=== PATIENT | male | born 1930 | race Caucasian/White ===

== ENCOUNTER 2017-12-03 14:02 | Observation (INO) | payer MEDICARE, MEDICAID ==
[~2017-12-03] VITALS: Ht 172.7 cm; Wt 74.0 kg
[~2017-12-03 14:02] MED LIST: CALA120T PO; ENOX40P SQ; NITR0.1D TD; ZOFR4TAB3 SL
[2017-12-03 14:05] VITALS: BP 157/80; PULSE 77; RESP 16; TEMP 97.6; O2SAT 97
[2017-12-03 14:20] VITALS: BP 162/78; PULSE 78; RESP 21; O2SAT 97
[2017-12-03] MEDS ORDERED: VERA120T3 PO (14:25)
[2017-12-03] MEDS ORDERED: SODIUM CHLORIDE 0.9% FLUSH 10 ML FLUSH IVF PRN (14:30)
--- NOTE | 2017-12-03 14:49 | PD ---
HPI . Weakness Chief Complaint: Neuro Symptoms/ Deficits Time Seen by Provider: 14:23 Travel History International Travel<30 days: No Contact w/Intl Traveler<30days: No Traveled to known affect area: No History of Present Illness HPI History is obtained from the patient and from several family members. 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 He was assisted to the truck by his son so that he could sit in the air conditioning. The weakness improved and he went back to work. However, the symptoms quickly returned. EMS was called and he was evaluated at the scene. They did not find any abnormality. He was then taken home and took a nap for about an hour. The family then noted slurred speech and left facial droop. This started about 45 minutes prior to presentation. He was brought here by private vehicle from [facility] for further evaluation. The patient denies headache or blurred vision. He denies chest pain or shortness of breath. The patient believes that his symptoms are secondary to working out in the heat all day. PFSH Past Medical History Hx Anticoagulant Therapy: No Atrial Fibrillation: Yes Cardiac Catheterization: Yes Diminished Hearing: No Inguinal Hernia: Yes Tetanus Vaccination: < 5 Years Past Surgical History Abdominal Surgery: Yes (R INGUINAL HERNIA) Tonsillectomy: Yes Social History Alcohol Use: No Tobacco Use: No Substance Use: No Allergies-Medications (Allergen,Severity, Reaction): Coded Allergies: acetaminophen (Unverified Allergy, Intermediate, 01/27/17) butorphanol (Unverified Allergy, Intermediate, 01/27/17) codeine (Unverified Allergy, Intermediate, 01/27/17) hydromorphone (Unverified Allergy, Intermediate, 01/27/17) ketorolac (Unverified Allergy, Intermediate, 01/27/17) lidocaine (Unverified Allergy, Intermediate, 01/27/17) morphine (Unverified Allergy, Intermediate, 01/27/17) naproxen (Unverified Allergy, Intermediate, 01/27/17) oxycodone (Unverified Allergy, Intermediate, 01/27/17) pravastatin (Unverified Allergy, Intermediate, 01/27/17) tramadol (Unverified Adverse Reaction, Unknown, Nausea/Vomiting, 01/27/17) Uncoded Allergies: STATINS (Allergy, Intermediate, 06/13/10) Reported Meds & Prescriptions Reported Meds & Active Scripts Active Reported Verapamil (Verapamil HCl) 120 Mg Tab 60 Mg PO TID Review of Systems Except as stated in HPI: all other systems reviewed are Neg Physical Exam Narrative GENERAL: This is an 87-year-old man who looks well. SKIN: warm/dry. HEAD: Normocephalic. Atraumatic. EYES: Pupils equal and round. Extraocular movements are intact. ENT: Mucous membranes pink and moist. NECK: Supple. Full range of motion without pain.. CARDIOVASCULAR: Atrial fibrillation with a controlled ventricular rate. RESPIRATORY: No accessory muscle use. Clear to auscultation. Breath sounds equal bilaterally. GASTROINTESTINAL: Abdomen soft. Nontender. Bowel sounds present. Nondistended. MUSCULOSKELETAL: No obvious deformities. Normal muscle tone. NEUROLOGICAL: Awake and alert. Normal speech. 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 Olzzor-tssm-asmzxm exam is intact. Negative pronator drift. Negative leg drift. Toes are downgoing bilaterally. PSYCHIATRIC: Appropriate mood and affect; insight and judgment normal. Data Data Last Documented VS Vital Signs Date Time Temp Pulse Resp B/P (MAP) Pulse Ox O2 Delivery O2 Flow Rate FiO2 12/03/17 14:20 78 21 162/78 (106) 97 Room Air 12/03/17 14:05 97.6 Orders Orders Electrocardiogram (12/03/17 14:23) Complete Blood Count With Diff (12/03/17 14:23) Basic Metabolic Panel (Bmp) (12/03/17 14:23) Troponin I (12/03/17 14:23) Ct Brain W/O Iv Contrast(Rout) (12/03/17 14:23) Ecg Monitoring (12/03/17 14:23) Iv Access Insert/Monitor (12/03/17 14:23) Oximetry (12/03/17 14:23) Sodium Chloride 0.9% Flush (Ns Flush) (12/03/17 14:30) Aspirin Chew (Aspirin Chew) (12/03/17 16:00) Labs Laboratory Tests Test 12/03/17 14:29 White Blood Count 5.4 TH/MM3 Red Blood Count 4.41 MIL/MM3 Hemoglobin 13.5 GM/DL Hematocrit 40.7 % Mean Corpuscular Volume 92.4 FL Mean Corpuscular Hemoglobin 30.6 PG Mean Corpuscular Hemoglobin Concent 33.2 % Red Cell Distribution Width 14.2 % Platelet Count 164 TH/MM3 Mean Platelet Volume 9.5 FL Neutrophils (%) (Auto) 76.7 % Lymphocytes (%) (Auto) 14.2 % Monocytes (%) (Auto) 7.3 % Eosinophils (%) (Auto) 1.2 % Basophils (%) (Auto) 0.6 % Neutrophils # (Auto) 4.2 TH/MM3 Lymphocytes # (Auto) 0.8 TH/MM3 Monocytes # (Auto) 0.4 TH/MM3 Eosinophils # (Auto) 0.1 TH/MM3 Basophils # (Auto) 0.0 TH/MM3 CBC Comment DIFF FINAL Differential Comment Blood Urea Nitrogen 18 MG/DL Creatinine 0.96 MG/DL Random Glucose 108 MG/DL Calcium Level 9.0 MG/DL Sodium Level 140 MEQ/L Potassium Level 4.0 MEQ/L Chloride Level 105 MEQ/L Carbon Dioxide Level 24.8 MEQ/L Anion Gap 10 MEQ/L Estimat Glomerular Filtration Rate 74 ML/MIN Troponin I LESS THAN 0.02 NG/ML MDM Medical Decision Making Medical Screen Exam Complete: Yes Emergency Medical Condition: Yes Interpretation(s) EKG shows atrial fibrillation with a ventricular rate of 62. No acute ischemic changes Differential Diagnosis Differential diagnosis of weakness includes but is not limited to infection, CVA , electrolyte disturbance, renal failure, hypoglycemia Narrative Course This patient presents with weakness. The son believes that the weakness was global. The states that he had some left-sided facial droop and slurred speech. All of this has resolved. Last Impressions Head CT 12/03/17 1423 Signed Impressions: CONCLUSION: 1. Negative CT Head non contrast. CBC & BMP Diagram 12/03/17 14:29 Calcium Level 9.0 trop < 0.02 The patient and his family are agreeable to an admission for further evaluation of TIA. Physician Communication Physician Communication Dr. Marr Diagnosis Primary Impression: TIA (transient ischemic attack) Qualified Codes: G45.1 - Carotid artery syndrome (hemispheric) Admitting Information Admitting Physician Requests: Observation Condition: Stable Leonor Carreno MD Dec 03, 2017 14:49
[2017-12-03 14:55] LABS: AUTOMATED NEUTROPHIL # 4.2 TH/MM3 (1.8-7.7); BASOPHIL % 0.6 % (0.0-2.0); EOSINOPHIL # 0.1 TH/MM3 (0-0.4); EOSINOPHIL % 1.2 % (0.0-4.0); HEMATOCRIT 40.7 % (39.0-51.0); HEMOGLOBIN 13.5 GM/DL (13.0-17.0); LYMPH % 14.2 % (9.0-44.0); LYMPHOCYTE # 0.8 TH/MM3 (1.0-4.8); MEAN CELL VOLUME 92.4 FL (80.0-100.0); MEAN CORPUSCULAR HEMOGLOBIN 30.6 PG (27.0-34.0); MEAN CORPUSCULAR HGB CONC 33.2 % (32.0-36.0); MEAN PLATELET VOLUME 9.5 FL (7.0-11.0); MONO % 7.3 % (0.0-8.0); MONOCYTE # 0.4 TH/MM3 (0-0.9); NEUT % 76.7 % (16.0-70.0); PLATELET COUNT 164 TH/MM3 (150-450); RED BLOOD COUNT 4.41 MIL/MM3 (4.50-5.90); RED CELL DISTRIBUTION WIDTH 14.2 % (11.6-17.2); WHITE BLOOD COUNT 5.4 TH/MM3 (4.0-11.0)
--- NOTE | 2017-12-03 15:04 | RADRPT ---
EXAM DATE: 12/03/2017 2:59 PM EDT AGE/SEX: 87 years / Male INDICATIONS: Slurred speach, right leg weakness. CLINICAL DATA: This is the patient's initial encounter. Patient reports that signs and symptoms have been present for 1 day and indicates a pain score of 0/10. MEDICAL/SURGICAL HISTORY: Cardiovascular disease. Tonsillectomy. RADIATION DOSE: 36.64 CTDI (mGy) COMPARISON: No prior exams available for comparison. TECHNIQUE: CT of the head without contrast. Using automated exposure control and adjustment of the mA and/or kV according to patient size, radiation dose was kept as low as reasonably achievable to ob tain optimal diagnostic quality images. DICOM format image data is available electronically for revi ew and comparison. FINDINGS: Cerebrum: The ventricles are normal for age. No evidence of midline shift, mass lesion, hemorrhage or acute infarction. No extraaxial fluid collections are seen. Posterior Fossa: The cerebellum and brainstem are intact. The 4th ventricle is midline. The cerebe llopontine angle is unremarkable. Extracranial: The visualized portion of the orbits is intact. Skull: The calvaria is intact. No evidence of skull fracture. CONCLUSION: 1. Negative CT Head non contrast. Electronically signed by: Rodrigo Mirza MD 12/03/2017 3:02 PM EDT
[2017-12-03 15:25] LABS: BICARBONATE 24.8 MEQ/L (21.0-32.0); BLOOD UREA NITROGEN 18 MG/DL (7-18); CHLORIDE 105 MEQ/L (98-107); CREATININE 0.96 MG/DL (0.60-1.30); GLOMERULAR FILTRATION RATE 74 ML/MIN (>89); GLUCOSE,RANDOM 108 MG/DL (74-106); SODIUM (NA) 140 MEQ/L (136-145)
[2017-12-03 15:30] LABS: TROPONIN I LESS THAN 0.02 NG/ML (0.02-0.05)
--- NOTE | 2017-12-03 15:54 | HHI.HP ---
[facility] Service Family Medicine Primary Care Physician Vladimir Lackey D.O. Admission Diagnosis TIA Diagnoses: International Travel<30 Days: No Contact w/Intl Traveler<30days: No Known Affected Area: No History of Present Illness 87-year-old male with a history of A. fib, currently not on anticoagulation, presents for TIA/stroke workup. Patient is here with his family. His son states that around 1130am this morning, patient was "holding a horseshoe and suddenly dropped it, stood there, and appeared confused." Son states that patient was assisted back to his truck for air conditioning. Son states that he appeared to walk very slowing. Son noticed that he had left-sided facial droop and slurred speech. Family states that his symptoms last for 20 minutes any progressively improved. Patient did not have any loss of consciousness. Patient was alert and oriented to name place and time during the whole episode. Patient states that he was just hot and dehydrated and needed some AC. He denies that he had any neuro symptoms. Patient has no history of seizures, stroke, CHF, and MT. He denies chest pain, shortness of breath, palpations, fevers, night sweats, tongue biting, shaking, loss of bowel/bladder control. Family called the ambulance after his neuro symptoms. He reports that the EMT did not think he had a stroke. Family however was still concerned and brought the patient against his will to the ED. Patient states that he was diagnosed with A. fib years ago in 2007. States that they never found a cause for his A. fib. Currently on rate control with verapamil 60 mg p.o. 3 times daily. Patient states that he was on Lovenox subcu in the past, but has not taken it in several years. Patient refuses to take anticoagulation. 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 He does receive chelation therapy once a week. He has had a total of 3 chelation therapies. 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 Review of Systems Constitutional: DENIES: Fever, Weight loss, Change in appetite Eyes: DENIES: Vision loss Respiratory: DENIES: Cough, Shortness of breath Cardiovascular: COMPLAINS OF: Lower Extremity Edema, DENIES: Chest pain, Palpitations Gastrointestinal: DENIES: Abdominal pain, Bloody stools, Diarrhea, Nausea, Vomiting, Difficulty Swallowing Genitourinary: DENIES: Dysuria Musculoskeletal: DENIES: Back pain Integumentary: DENIES: Rash Neurologic: DENIES: Abnormal gait, Headache, Localized weakness, Paresthesias, Tremor Psychiatric: DENIES: Confusion, Depression Past Family Social History Past Medical History AFib BPH Past Surgical History 2009, emergency hernia surgery Reported Medications Reported Meds & Active Scripts Active Reported Verapamil (Verapamil HCl) 120 Mg Tab 60 Mg PO TID Allergies: Coded Allergies: acetaminophen (Unverified Allergy, Intermediate, 01/27/17) butorphanol (Unverified Allergy, Intermediate, 01/27/17) codeine (Unverified Allergy, Intermediate, 01/27/17) hydromorphone (Unverified Allergy, Intermediate, 01/27/17) ketorolac (Unverified Allergy, Intermediate, 01/27/17) lidocaine (Unverified Allergy, Intermediate, 01/27/17) morphine (Unverified Allergy, Intermediate, 01/27/17) naproxen (Unverified Allergy, Intermediate, 01/27/17) oxycodone (Unverified Allergy, Intermediate, 01/27/17) pravastatin (Unverified Allergy, Intermediate, 01/27/17) tramadol (Unverified Adverse Reaction, Unknown, Nausea/Vomiting, 01/27/17) Uncoded Allergies: STATINS (Allergy, Intermediate, 06/13/10) Family History Mom- pass away at 101 Dad-shot healthy children no cardiac history Social History 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 Normocephalic. No temporal or scalp tenderness. EYES: Pupils equal round and reactive. Extraocular motions intact. No scleral icterus. No injection or drainage. ENT: Nose without bleeding, purulent drainage or septal hematoma. Throat without erythema, tonsillar hypertrophy or exudate. Uvula midline. Airway patent. NECK: Trachea midline. No JVD or lymphadenopathy. Supple, nontender, no meningeal signs. CARDIOVASCULAR: Irregular rate and rhythm RESPIRATORY: Clear to auscultation. Breath sounds equal bilaterally. No wheezes , rales, or rhonchi. GASTROINTESTINAL: Abdomen soft, non-tender, nondistended. No hepato-splenomegaly , or palpable masses. No guarding. MUSCULOSKELETAL: Extremities without clubbing, cyanosis, or edema. No joint tenderness, effusion, or edema noted. No calf tenderness. Negative Homans sign bilaterally. NEUROLOGICAL: Awake and alert. Oriented 3. Cranial nerves II through XII intact. Motor and sensory grossly within normal limits. Five out of 5 muscle strength in all muscle groups. Normal speech. Laboratory Laboratory Tests Test 12/03/17 14:29 White Blood Count 5.4 Red Blood Count 4.41 Hemoglobin 13.5 Hematocrit 40.7 Mean Corpuscular Volume 92.4 Mean Corpuscular Hemoglobin 30.6 Mean Corpuscular Hemoglobin Concent 33.2 Red Cell Distribution Width 14.2 Platelet Count 164 Mean Platelet Volume 9.5 Neutrophils (%) (Auto) 76.7 Lymphocytes (%) (Auto) 14.2 Monocytes (%) (Auto) 7.3 Eosinophils (%) (Auto) 1.2 Basophils (%) (Auto) 0.6 Neutrophils # (Auto) 4.2 Lymphocytes # (Auto) 0.8 Monocytes # (Auto) 0.4 Eosinophils # (Auto) 0.1 Basophils # (Auto) 0.0 CBC Comment DIFF FINAL Differential Comment Blood Urea Nitrogen 18 Creatinine 0.96 Random Glucose 108 Calcium Level 9.0 Sodium Level 140 Potassium Level 4.0 Chloride Level 105 Carbon Dioxide Level 24.8 Anion Gap 10 Estimat Glomerular Filtration Rate 74 Troponin I LESS THAN 0.02 Result Diagram: 12/03/17 14212/03/17 142 Caprini VTE Risk Assessment Caprini VTE Risk Assessment: Mod/High Risk (score >= 2) Caprini Risk Assessment Model Point Value = 1 Point Value = 2 Point Value = 3 Point Value = 5 Age 41-60 Minor surgery BMI > 25 kg/m2 Swollen legs Varicose veins or History of unexplained or recurrent spontaneous Oral contraceptives or hormone replacement Sepsis (< 1 month) Serious lung disease, including pneumonia (< 1 month) Abnormal pulmonary function Acute myocardial infarction Congestive heart failure (< 1 month) History of inflammatory bowel disease Medical patient at bed rest Age 61-74 Arthroscopic surgery Major open surgery (> 45 min) Laparoscopic surgery (> 45 min) Malignancy Confined to bed (> 72 hours) Immobilizing plaster cast Central venous access Age >= 75 History of VTE Family history of VTE Factor V Leiden Prothrombin [id number] Lupus anticoagulant Anticardiolipin antibodies Elevated serum homocysteine Heparin-induced thrombocytopenia Other congenital or acquired thrombophilia Stroke (< 1 month) Elective arthroplasty Hip, pelvis, or leg fracture Acute spinal cord injury (< 1 month) Prophylaxis Regimen Total Risk Factor Score Risk Level Prophylaxis Regimen 0-1 Low Early ambulation 2 Moderate Order ONE of the following: *Sequential Compression Device (SCD) *Heparin 5000 units SQ BID 3-4 Higher Order ONE of the following medications: *Heparin 5000 units SQ TID *Enoxaparin/Lovenox 40 mg SQ daily (WT < 150 kg, CrCl > 30 mL/min) *Enoxaparin/Lovenox 30 mg SQ daily (WT < 150 kg, CrCl > 10-29 mL/min) *Enoxaparin/Lovenox 30 mg SQ BID (WT < 150 kg, CrCl > 30 mL/min) AND/OR *Sequential Compression Device (SCD) 5 or more Highest Order ONE of the following medications: *Heparin 5000 units SQ TID (Preferred with Epidurals) *Enoxaparin/Lovenox 40 mg SQ daily (WT < 150 kg, CrCl > 30 mL/min) *Enoxaparin/Lovenox 30 mg SQ daily (WT < 150 kg, CrCl > 10-29 mL/min) *Enoxaparin/Lovenox 30 mg SQ BID (WT < 150 kg, CrCl > 30 mL/min) AND *Sequential Compression Device (SCD) Assessment and Plan Assessment and Plan 87-year-old male with a history of A. fib, currently not on anticoagulation, admitted for TIA/stroke workup. Code Status Full code Problem List: (1) TIA (transient ischemic attack) ICD Codes: G45.9 - Transient cerebral ischemic attack, unspecified Status: Acute Plan: Family states patient had neuro symptoms around 11:30 AM, with resolution of symptoms in 20 minutes. Patient states that he was just dehydrated. He is adamant about staying and refuses to take any medicines. After much discussion with the patient, patient agreed to stay. EKG demonstrates A. fib, heart rate in the 70s, troponins less than 0.02 Continue to trend EKG and troponin every [address] negative for hemorrhagic stroke Patient refused aspirin. A1c, lipid panel, MRI brain, MRA brain, and US carotids ordered Head 30 for 12 hours N.p.o., will advance diet to heart healthy once patient passes swallow study Allow permissive hypertension to 220/120 (2) A-fib ICD Codes: I48.91 - Unspecified atrial fibrillation Plan: Hold home verapamil, allow for permissive hypertension He is currently not on anticoagulation. Patient states that he was on Lovenox SC years ago. Patient refuses to take any new medications. CHADVASC Score of 2 points, HASBLED 1 point (3) BPH (benign prostatic hyperplasia) ICD Codes: N40.0 - Benign prostatic hyperplasia without lower urinary tract symptoms Plan: Patient states that he has a large prostate. He is not currently on any medication for his BPH. (4) Nutrition, metabolism, and development symptoms ICD Codes: R63.8 - Other symptoms and signs concerning food and fluid intake Plan: Diet: NPO the patient passes bedside swallow Fluids.MIVF Vitals every 4, cardiac telemetry, monitor I & Os DVT ppx: SCDs Problem Qualifiers (1) TIA (transient ischemic attack): Qualified Codes: G45.1 - Carotid artery syndrome (hemispheric) Kaylynn Marr MD R1 Dec 03, 2017 15:54
[2017-12-03] MEDS ORDERED: ASPIRIN 81 MG CHEW TAB CHEW ONE (16:00)
[2017-12-03] MEDS ORDERED: GLUCAGON 1 MG/ML VIAL OTHER PRN (16:30)
[2017-12-03] MEDS ORDERED: SODIUM CHLORIDE 0.9% FLUSH 10 ML FLUSH IV FLUSH PRN (16:30)
[2017-12-03] MEDS ORDERED: DEXTROSE 50% IN WATER 50 ML VIAL(D50) IV PUSH PRN (16:30)
[2017-12-03] MEDS ORDERED: PILL SPLITTER OTHER PRN (16:45)
[2017-12-03] MEDS ORDERED: INSULIN ASPART SUPPLEMENTAL SCALE SQ SCH (17:00)
--- NOTE | 2017-12-03 17:52 | PD.AMA ---
Against Medical Advice Note Discharge Disposition: Against Medical Advice AMA Statement Patient Sung Munson has decided to leave the hospital against medical advice. This patient has the capacity to refuse care and understands the risks of leaving, including permanent disability and/or , and has had an opportunity to ask questions about his condition. The patient has been informed that he may return for care at any time, and follow up has been arranged/advised. Patient will not be accepted back to the Family Medicine Service. Kaylynn Marr MD R1 Dec 03, 2017 17:52
[2017-12-03] MEDS ORDERED: VERAPAMIL HCL 120 MG TAB PO SCH (18:00)
[2017-12-03] MEDS ORDERED: SODIUM CHLORIDE 0.9% FLUSH 10 ML FLUSH IV FLUSH SCH (21:00)
[2017-12-03 22:05] LABS: HEMOGLOBIN A1C 5.4 % (4.3-6.0)
--- NOTE | 2017-12-04 09:17 | EKG ---
Date Performed: 12/03/2017 Time Performed: 14:34:23 PTAGE: 87 years EKG: ATRIAL FIBRILLATION INCOMPLETE RIGHT BUNDLE BRANCH BLOCK MINIMAL ST DEPRESSION ABNORMAL RHY THM ECG Since the PREVIOUS TRACING , no significant change noted PREVIOUS TRACIN06/13/2010 11.59 DOCTOR: Dony Almonte Interpretating Date/Time 12/04/2017 09:13:57
[2017-12-04] MEDS ORDERED: ASA325 PO (18:07)
== END 2017-12-03 17:51 | disposition left against medical advice (07) ==
LOC: NEPE 14:02 → NEDA 15:50
PROVIDERS: ADMIT Family Medicine; ATTEND Family Medicine
DX: R29.818 Other symptoms and signs involving the nervous system (principal); R53.1 Weakness; R47.81 Slurred speech; R29.810 Facial weakness; I48.91 Unspecified atrial fibrillation; N40.0 Benign prostatic hyperplasia without lower urinary tract symptoms; R79.89 Other specified abnormal findings of blood chemistry
CPT/HCPCS: 70450; 80048; 83036; 84484; 85025; 93005; 99285; G0378

== ENCOUNTER 2017-12-03 18:02 | Observation (INO) | payer MEDICARE, MEDICAID ==
[~2017-12-03] VITALS: Ht 172.7 cm; Wt 74.0 kg
[~2017-12-03 18:02] MED LIST changes: +VERA120T3 PO
[2017-12-03 18:11] VITALS: BP 137/73; PULSE 73; RESP 16; TEMP 97.1; O2SAT 97
[2017-12-03 20:00] VITALS: O2SAT 96
--- NOTE | 2017-12-03 20:11 | PD ---
HPI Chief Complaint: Neuro Symptoms/ Deficits Time Seen by Provider: 20:32 Travel History International Travel<30 days: No Contact w/Intl Traveler<30days: No Traveled to known affect area: No History of Present Illness HPI Patient was seen earlier and admitted by family medicine service, however the patient decided to leave AGAINST MEDICAL ADVICE. Now the patient returns at 20 00 with return of slurred speech difficulty speaking and unable to communicate with his family for approximately 30 minutes or so. This prompted the patient to return and this time the patient agrees to stay for further evaluation. Patient denied having any localized weakness at this time and he slurred speech has improved and is almost back to baseline. no alleviating/aggravating factors. no assoc fever/rash/sob/cp/carmen/. States multiple allergies Family history significant for atrial fibrillation, inguinal hernia, tonsillectomy PFSH Past Medical History Hx Anticoagulant Therapy: No Atrial Fibrillation: Yes Cardiac Catheterization: Yes Diminished Hearing: No Inguinal Hernia: Yes Past Surgical History Abdominal Surgery: Yes (R INGUINAL HERNIA) Tonsillectomy: Yes Social History Alcohol Use: No Tobacco Use: No Substance Use: No Allergies-Medications (Allergen,Severity, Reaction): Coded Allergies: acetaminophen (Unverified Allergy, Intermediate, 01/27/17) butorphanol (Unverified Allergy, Intermediate, 01/27/17) codeine (Unverified Allergy, Intermediate, 01/27/17) hydromorphone (Unverified Allergy, Intermediate, 01/27/17) ketorolac (Unverified Allergy, Intermediate, 01/27/17) lidocaine (Unverified Allergy, Intermediate, 01/27/17) morphine (Unverified Allergy, Intermediate, 01/27/17) naproxen (Unverified Allergy, Intermediate, 01/27/17) oxycodone (Unverified Allergy, Intermediate, 01/27/17) pravastatin (Unverified Allergy, Intermediate, 01/27/17) tramadol (Unverified Adverse Reaction, Unknown, Nausea/Vomiting, 01/27/17) Uncoded Allergies: STATINS (Allergy, Intermediate, 06/13/10) Reported Meds & Prescriptions Reported Meds & Active Scripts Active Reported Verapamil (Verapamil HCl) 120 Mg Tab 60 Mg PO TID Review of Systems General / Constitutional: No: Fever Eyes: No: Visual changes HENT: No: Headaches Cardiovascular: No: Chest Pain or Discomfort Respiratory: No: Shortness of Breath Gastrointestinal: No: Abdominal Pain Genitourinary: No: Dysuria Musculoskeletal: No: Pain Skin: No Rash Neurologic: Positive: Slurred Speech Psychiatric: No: Depression Endocrine: No: Polydipsia Hematologic/Lymphatic: No: Easy Bruising Physical Exam Narrative GENERAL: SKIN: Warm and dry. HEAD: Atraumatic. Normocephalic. EYES: Pupils equal and round. No scleral icterus. No injection or drainage. ENT: No nasal bleeding or discharge. Mucous membranes pink and moist. NECK: Trachea midline. No JVD. CARDIOVASCULAR: Regular rate and rhythm. RESPIRATORY: No accessory muscle use. Clear to auscultation. Breath sounds equal bilaterally. GASTROINTESTINAL: Abdomen soft, non-tender, nondistended. MUSCULOSKELETAL: Extremities without clubbing, cyanosis, or edema. No obvious deformities. NEUROLOGICAL: Awake and alert. No obvious cranial nerve deficits. Motor grossly within normal limits. Five out of 5 muscle strength in the arms and legs. Normal speech. PSYCHIATRIC: Appropriate mood and affect; insight and judgment normal. Data Data Last Documented VS Vital Signs Date Time Temp Pulse Resp B/P (MAP) Pulse Ox O2 Delivery O2 Flow Rate FiO2 12/03/17 20:35 97.5 62 14 149/76 (100) 96 Room Air Orders Orders Sepsis Workup Initiated (12/03/17 ) Complete Blood Count With Diff (12/03/17 20:00) Comprehensive Metabolic Panel (12/03/17 20:00) Lactic Acid Sepsis Protocol (12/03/17 20:00) Urinalysis - C+S If Indicated (12/03/17 20:00) Blood Culture (12/03/17 20:00) Blood Glucose (12/03/17 20:00) Ecg Monitoring (12/03/17 20:00) Iv Access Insert/Monitor (12/03/17 20:00) Oximetry (12/03/17 20:00) Ct Brain W/O Iv Contrast(Rout) (12/03/17 20:00) Admit Order (Ed Use Only) (12/03/17 20:45) Labs Laboratory Tests Test 12/03/17 20:25 White Blood Count 5.7 TH/MM3 Red Blood Count 4.34 MIL/MM3 Hemoglobin 13.3 GM/DL Hematocrit 40.0 % Mean Corpuscular Volume 92.1 FL Mean Corpuscular Hemoglobin 30.6 PG Mean Corpuscular Hemoglobin Concent 33.2 % Red Cell Distribution Width 14.4 % Platelet Count 171 TH/MM3 Mean Platelet Volume 9.5 FL Neutrophils (%) (Auto) 71.4 % Lymphocytes (%) (Auto) 18.1 % Monocytes (%) (Auto) 9.3 % Eosinophils (%) (Auto) 0.7 % Basophils (%) (Auto) 0.5 % Neutrophils # (Auto) 4.1 TH/MM3 Lymphocytes # (Auto) 1.0 TH/MM3 Monocytes # (Auto) 0.5 TH/MM3 Eosinophils # (Auto) 0.0 TH/MM3 Basophils # (Auto) 0.0 TH/MM3 CBC Comment DIFF FINAL Differential Comment Blood Urea Nitrogen 16 MG/DL Creatinine 0.93 MG/DL Random Glucose 104 MG/DL Total Protein 7.4 GM/DL Albumin 4.0 GM/DL Calcium Level 9.1 MG/DL Alkaline Phosphatase 92 U/L Aspartate Amino Transf (AST/SGOT) 21 U/L Alanine Aminotransferase (ALT/SGPT) 23 U/L Total Bilirubin 0.7 MG/DL Sodium Level 140 MEQ/L Potassium Level 3.8 MEQ/L Chloride Level 105 MEQ/L Carbon Dioxide Level 24.3 MEQ/L Anion Gap 11 MEQ/L Estimat Glomerular Filtration Rate 77 ML/MIN Lactic Acid Level 1.2 mmol/L [facility] Medical Decision Making Medical Screen Exam Complete: Yes Emergency Medical Condition: Yes Medical Record Reviewed: Yes Differential Diagnosis TIA versus CVA versus electrolyte abnormalities Narrative Course Patient was previously admitted by family medicine residents, and apparently left AMA. However now the patient returns for further care and agrees that he will stay for further evaluation. Family medicine called for readmission after CT head performed.... Repeat CT head does not show any evidence of intracranial hemorrhage Diagnosis Primary Impression: TIA (transient ischemic attack) Qualified Codes: G45.9 - Transient cerebral ischemic attack, unspecified Admitting Information Admitting Physician Requests: Observation Scripts Aspirin (Px Aspirin) 325 Mg Tab 325 MG PO DAILY, #30 TAB Prov: Roque Tran MD R2 12/04/17 Cecilio Omalley MD Dec 03, 2017 20:11
--- NOTE | 2017-12-03 20:29 | RADRPT ---
EXAM DATE: 12/03/2017 8:21 PM EDT AGE/SEX: 87 years / Male INDICATIONS: Slurred speech. Right leg weakness. CLINICAL DATA: This is the patient's initial encounter. Patient reports that signs and symptoms have been present for 1 day and indicates a pain score of 0/10. MEDICAL/SURGICAL HISTORY: Cardiovascular disease. None. RADIATION DOSE: 56.35 CTDI (mGy) COMPARISON: CT brain 12/03/2017 at 0255 hours . TECHNIQUE: CT of the head without contrast. Using automated exposure control and adjustment of the mA and/or kV according to patient size, radiation dose was kept as low as reasonably achievable to ob tain optimal diagnostic quality images. DICOM format image data is available electronically for revi ew and comparison. FINDINGS: Cerebrum: The ventricles are normal for age. No evidence of midline shift, mass lesion, hemorrhage or acute infarction. No extraaxial fluid collections are seen. Posterior Fossa: The cerebellum and brainstem are intact. The 4th ventricle is midline. The cerebe llopontine angle is unremarkable. Extracranial: The visualized portion of the orbits is intact. Skull: The calvaria is intact. No evidence of skull fracture. CONCLUSION: 1. Negative CT Head non contrast. Electronically signed by: Humphrey Aponte MD 12/03/2017 8:27 PM EDT
[2017-12-03 20:35] VITALS: BP 149/76; PULSE 62; RESP 14; TEMP 97.5; O2SAT 96
[2017-12-03 20:39] LABS: AUTOMATED NEUTROPHIL # 4.1 TH/MM3 (1.8-7.7); BASOPHIL % 0.5 % (0.0-2.0); EOSINOPHIL % 0.7 % (0.0-4.0); HEMOGLOBIN 13.3 GM/DL (13.0-17.0); LYMPH % 18.1 % (9.0-44.0); MEAN CELL VOLUME 92.1 FL (80.0-100.0); MEAN CORPUSCULAR HEMOGLOBIN 30.6 PG (27.0-34.0); MEAN CORPUSCULAR HGB CONC 33.2 % (32.0-36.0); MEAN PLATELET VOLUME 9.5 FL (7.0-11.0); MONO % 9.3 % (0.0-8.0); MONOCYTE # 0.5 TH/MM3 (0-0.9); NEUT % 71.4 % (16.0-70.0); PLATELET COUNT 171 TH/MM3 (150-450); RED BLOOD COUNT 4.34 MIL/MM3 (4.50-5.90); RED CELL DISTRIBUTION WIDTH 14.4 % (11.6-17.2); WHITE BLOOD COUNT 5.7 TH/MM3 (4.0-11.0)
[2017-12-03 21:04] LABS: AST (GOT) 21 U/L (15-37); BICARBONATE 24.3 MEQ/L (21.0-32.0); BLOOD UREA NITROGEN 16 MG/DL (7-18); CALCIUM 9.1 MG/DL (8.5-10.1); CHLORIDE 105 MEQ/L (98-107); CREATININE 0.93 MG/DL (0.60-1.30); GLOMERULAR FILTRATION RATE 77 ML/MIN (>89); GLUCOSE,RANDOM 104 MG/DL (74-106); SODIUM (NA) 140 MEQ/L (136-145)
[2017-12-03 21:09] LABS: ALKALINE PHOSPHATASE 92 U/L (45-117); ALT (GPT) 23 U/L (12-78); TOTAL BILIRUBIN ADULT 0.7 MG/DL (0.2-1.0); TOTAL PROTEIN 7.4 GM/DL (6.4-8.2)
[2017-12-03 21:53] LABS: BILIRUBIN, URINE NEG (NEG); BLOOD, URINE NEG (NEG); GLUCOSE,URINE NEG (NEG); KETONE, URINE TRACE mg/dL (NEG); NITRITE,URINE NEG (NEG); URINE COLOR YELLOW (YELLW/STRAW); URINE LEUKOCYTE ESTERASE NEG (NEG)
--- NOTE | 2017-12-03 22:01 | HHI.HP ---
[facility] Service Family Medicine Primary Care Physician Vladimir Lackey D.O. Admission Diagnosis TIA Diagnoses: Chief Complaint: slurred speech International Travel<30 Days: No Contact w/Intl Traveler<30days: No Known Affected Area: No History of Present Illness 87-year-old male with history of atrial fibrillation presents with slurred speech. Of note, patient was previously admitted earlier this afternoon due to confusion, left-sided facial droop, and slurred speech. Patient was admitted and seen, however decided to leave against medical advice. On the way home, patient stated he experienced another episode of slurred speech, and his turned around and brought him back to the ER. He now states he wants to stay and will need to be worked up. At the time of the initial incident earlier this afternoon, he states he was hot and outside. States the symptoms started suddenly. Denies any history of seizures, stroke. He states he does have a history of cardiac disease, which they were planning on doing a quadruple bypass, but he declined. He underwent chelation therapy is 18 years ago, and stated that worked. Does not currently see a real estate economist. His PCP is Dr. Lackey. He does have a history of atrial fibrillation. He is not on anticoagulation, due to concerns [place]. He does not drink alcohol. Does not smoke. Denies any drug use. No headaches. Currently, he states he feels back to normal. Review of Systems Constitutional: DENIES: Fever, Weight gain, Weight loss, Chills, Dizziness Eyes: DENIES: Blurred vision, Vision loss Ears, nose, mouth, throat: DENIES: Hearing loss, Sinus Pain, Toothache Respiratory: DENIES: Apneas, Cough, Snoring, Wheezing, Hemoptysis Cardiovascular: DENIES: Chest pain, Palpitations, Syncope, Dyspnea on Exertion , PND, Lower Extremity Edema Gastrointestinal: DENIES: Abdominal pain, Black stools, Bloody stools, Constipation, Diarrhea, Nausea, Vomiting Genitourinary: DENIES: Urgency, Testicular Swelling Musculoskeletal: DENIES: Muscle aches, Back pain, Neck pain Integumentary: DENIES: Abnormal pigmentation, Rash Hematologic/lymphatic: DENIES: Bruising, Lymphadenopathy Neurologic: DENIES: Abnormal gait, Headache Psychiatric: DENIES: Anxiety, Confusion, Mood changes Past Family Social History Past Medical History Afib BPH Past Surgical History 2010-hernia surgery Reported Medications Reported Meds & Active Scripts Active Reported Verapamil (Verapamil HCl) 120 Mg Tab 60 Mg PO TID Allergies: Coded Allergies: acetaminophen (Unverified Allergy, Intermediate, 01/27/17) butorphanol (Unverified Allergy, Intermediate, 01/27/17) codeine (Unverified Allergy, Intermediate, 01/27/17) hydromorphone (Unverified Allergy, Intermediate, 01/27/17) ketorolac (Unverified Allergy, Intermediate, 01/27/17) lidocaine (Unverified Allergy, Intermediate, 01/27/17) morphine (Unverified Allergy, Intermediate, 01/27/17) naproxen (Unverified Allergy, Intermediate, 01/27/17) oxycodone (Unverified Allergy, Intermediate, 01/27/17) pravastatin (Unverified Allergy, Intermediate, 01/27/17) tramadol (Unverified Adverse Reaction, Unknown, Nausea/Vomiting, 01/27/17) Uncoded Allergies: STATINS (Allergy, Intermediate, 06/13/10) Family History Mother-passed at 101 Father-passed from being shot Healthy children Social History Lives with and kids Works as a [employer] Denies smoking, drinking, drug use Physical Exam Vital Signs Vital Signs Date Time Temp Pulse Resp B/P (MAP) Pulse Ox O2 Delivery O2 Flow Rate FiO2 12/03/17 20:35 97.5 62 14 149/76 (100) 96 Room Air 12/03/17 20:00 96 Room Air 12/03/17 18:11 97.1 73 16 137/73 (94) 97 Physical Exam GENERAL: This is a well-nourished, well-developed patient, in no apparent distress. SKIN: No rashes, ecchymoses or lesions. Cool and dry. HEAD: Atraumatic. Normocephalic. No temporal or scalp tenderness. EYES: Pupils equal round and reactive. Extraocular motions intact. No scleral icterus. No injection or drainage. ENT: Throat without erythema, tonsillar hypertrophy or exudate. Uvula midline. Airway patent. NECK: Trachea midline. No JVD or lymphadenopathy. Supple, nontender. CARDIOVASCULAR: Regular rate and rhythm without murmurs, gallops, or rubs. RESPIRATORY: Clear to auscultation. Breath sounds equal bilaterally. No wheezes , rales, or rhonchi. GASTROINTESTINAL: Abdomen soft, non-tender, nondistended. No hepato-splenomegaly , or palpable masses. No guarding. MUSCULOSKELETAL: Extremities without clubbing, cyanosis, or edema. No joint tenderness, effusion, or edema noted. No calf tenderness. NEUROLOGICAL: Alert, oriented x3 Speech- Fluent. No dysarthria or dysphasia. Good focus, attention, and comprehension. Cranial nerves- 2 through 12 intact. Face- No facial droop. No tongue deviation. Sensation intact bilaterally 5/5 strength bilaterally. Cerebellar movements wnl. Able to repeat phrases. Able to name simple objects. Short term memory intact. Laboratory Laboratory Tests Test 12/03/17 20:25 12/03/17 21:00 White Blood Count 5.7 Red Blood Count 4.34 Hemoglobin 13.3 Hematocrit 40.0 Mean Corpuscular Volume 92.1 Mean Corpuscular Hemoglobin 30.6 Mean Corpuscular Hemoglobin Concent 33.2 Red Cell Distribution Width 14.4 Platelet Count 171 Mean Platelet Volume 9.5 Neutrophils (%) (Auto) 71.4 Lymphocytes (%) (Auto) 18.1 Monocytes (%) (Auto) 9.3 Eosinophils (%) (Auto) 0.7 Basophils (%) (Auto) 0.5 Neutrophils # (Auto) 4.1 Lymphocytes # (Auto) 1.0 Monocytes # (Auto) 0.5 Eosinophils # (Auto) 0.0 Basophils # (Auto) 0.0 CBC Comment DIFF FINAL Differential Comment Blood Urea Nitrogen 16 Creatinine 0.93 Random Glucose 104 Total Protein 7.4 Albumin 4.0 Calcium Level 9.1 Alkaline Phosphatase 92 Aspartate Amino Transf (AST/SGOT) 21 Alanine Aminotransferase (ALT/SGPT) 23 Total Bilirubin 0.7 Sodium Level 140 Potassium Level 3.8 Chloride Level 105 Carbon Dioxide Level 24.3 Anion Gap 11 Estimat Glomerular Filtration Rate 77 Lactic Acid Level 1.2 Urine Color YELLOW Urine Turbidity CLEAR Urine pH 7.0 Urine Specific [place] 1.010 Urine Protein NEG Urine Glucose (UA) NEG Urine Ketones TRACE Urine Occult Blood NEG Urine Nitrite NEG Urine Bilirubin NEG Urine Urobilinogen LESS THAN 2 Urine Leukocyte Esterase NEG Urine RBC 1 Urine WBC 2 Microscopic Urinalysis Comment CATH-CULT NOT IND Date/Time Source Procedure Growth Status 12/03/17 20:25 Blood Peripheral Aerobic Blood Culture Pending Received 12/03/17 20:25 Blood Peripheral Anaerobic Blood Culture Pending Received Result Diagram: 12/03/17202412/03/172024 Imaging Last Impressions Head CT 12/03/171999 Signed Impressions: CONCLUSION: 1. Negative CT Head non contrast. Caprini VTE Risk Assessment Caprini VTE Risk Assessment: Mod/High Risk (score >= 2) Caprini Risk Assessment Model Point Value = 1 Point Value = 2 Point Value = 3 Point Value = 5 Age 41-60 Minor surgery BMI > 25 kg/m2 Swollen legs Varicose veins or History of unexplained or recurrent spontaneous Oral contraceptives or hormone replacement Sepsis (< 1 month) Serious lung disease, including pneumonia (< 1 month) Abnormal pulmonary function Acute myocardial infarction Congestive heart failure (< 1 month) History of inflammatory bowel disease Medical patient at bed rest Age 61-74 Arthroscopic surgery Major open surgery (> 45 min) Laparoscopic surgery (> 45 min) Malignancy Confined to bed (> 72 hours) Immobilizing plaster cast Central venous access Age >= 75 History of VTE Family history of VTE Factor V Leiden Prothrombin [id number] Lupus anticoagulant Anticardiolipin antibodies Elevated serum homocysteine Heparin-induced thrombocytopenia Other congenital or acquired thrombophilia Stroke (< 1 month) Elective arthroplasty Hip, pelvis, or leg fracture Acute spinal cord injury (< 1 month) Prophylaxis Regimen Total Risk Factor Score Risk Level Prophylaxis Regimen 0-1 Low Early ambulation 2 Moderate Order ONE of the following: *Sequential Compression Device (SCD) *Heparin 5000 units SQ BID 3-4 Higher Order ONE of the following medications: *Heparin 5000 units SQ TID *Enoxaparin/Lovenox 40 mg SQ daily (WT < 150 kg, CrCl > 30 mL/min) *Enoxaparin/Lovenox 30 mg SQ daily (WT < 150 kg, CrCl > 10-29 mL/min) *Enoxaparin/Lovenox 30 mg SQ BID (WT < 150 kg, CrCl > 30 mL/min) AND/OR *Sequential Compression Device (SCD) 5 or more Highest Order ONE of the following medications: *Heparin 5000 units SQ TID (Preferred with Epidurals) *Enoxaparin/Lovenox 40 mg SQ daily (WT < 150 kg, CrCl > 30 mL/min) *Enoxaparin/Lovenox 30 mg SQ daily (WT < 150 kg, CrCl > 10-29 mL/min) *Enoxaparin/Lovenox 30 mg SQ BID (WT < 150 kg, CrCl > 30 mL/min) AND *Sequential Compression Device (SCD) Assessment and Plan Assessment and Plan 87-year-old male with history of atrial fibrillation presents with TIA symptoms. Code Status Full Discussed Condition With Dr. Omalley Problem List: (1) TIA (transient ischemic attack) ICD Codes: G45.9 - Transient cerebral ischemic attack, unspecified Status: Acute Plan: Symptoms initially began around 1130 this morning. Symptoms quickly resolved. They then returned, but then again quickly resolved. Vascular risk factors include age, A-fib. Not on anticoagulation Physical exam on admission was within normal limits. CT was negative for bleeding. EKG shows A. fib. Troponins negative earlier today. ABCD2 score of 4: moderate risk for subsequent stroke -MRI brain stat to r/o ischemic stroke. -MRA brain and carotids ordered. -ACS rule out -2D ECHO -Given aspirin 325mg, continue daily -Neuro checks q4 hrs. Tele. -HOB flat for 12 hrs -Bedrest with fall precautions. -Consult neurology-appreciate recs -PT/OT/ST -If pt passes bedside swallow, will allow for heart healthy diet. (2) A-fib ICD Codes: I48.91 - Unspecified atrial fibrillation Plan: Chronic Afib. Not on anticoagulation. 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
[2017-12-03] MEDS ORDERED: DEXTROSE 50% IN WATER 50 ML VIAL(D50) IV PUSH PRN (22:15)
[2017-12-03] MEDS ORDERED: SODIUM CHLORIDE 0.9% FLUSH 10 ML FLUSH IV FLUSH PRN (22:15)
[2017-12-03] MEDS ORDERED: GLUCAGON 1 MG/ML VIAL OTHER PRN (22:15)
[2017-12-03] MEDS ORDERED: ENOXAPARIN SODIUM 40 MG/0.4 ML SYRINGE SQ SCH (22:15)
[2017-12-03] MEDS: ASPIRIN 325 MG TAB PO SCH (23:01)
[2017-12-03 23:03] VITALS: BP 141/75; PULSE 63; RESP 16; O2SAT 97
[2017-12-03 23:21] LABS: INTERNATIONAL NORMALIZED RATIO 1.1 RATIO; PROTHROMBIN TIME - PATIENT 11.4 SEC (9.8-11.6)
[2017-12-04 01:07] VITALS: BP 123/60; PULSE 59; RESP 16; TEMP 97.4; O2SAT 96
[2017-12-04] MEDS ORDERED: MAGNESIUM OXIDE 400 MG TAB PO ONE (03:15)
[2017-12-04 04:42] VITALS: BP 124/69; PULSE 60; RESP 16; TEMP 97.7; O2SAT 95
[2017-12-04 07:46] LABS: AUTOMATED NEUTROPHIL # 3.5 TH/MM3 (1.8-7.7); BASOPHIL # 0.1 TH/MM3 (0-0.2); BASOPHIL % 1.1 % (0.0-2.0); EOSINOPHIL # 0.1 TH/MM3 (0-0.4); EOSINOPHIL % 1.3 % (0.0-4.0); HEMATOCRIT 37.9 % (39.0-51.0); LYMPH % 17.1 % (9.0-44.0); LYMPHOCYTE # 0.9 TH/MM3 (1.0-4.8); MEAN CELL VOLUME 91.9 FL (80.0-100.0); MEAN CORPUSCULAR HEMOGLOBIN 31.4 PG (27.0-34.0); MEAN CORPUSCULAR HGB CONC 34.2 % (32.0-36.0); MEAN PLATELET VOLUME 9.7 FL (7.0-11.0); MONO % 9.9 % (0.0-8.0); MONOCYTE # 0.5 TH/MM3 (0-0.9); NEUT % 70.6 % (16.0-70.0); PLATELET COUNT 173 TH/MM3 (150-450); RED BLOOD COUNT 4.12 MIL/MM3 (4.50-5.90); RED CELL DISTRIBUTION WIDTH 14.2 % (11.6-17.2)
[2017-12-04] MEDS: INSULIN ASPART SUPPLEMENTAL SCALE SQ SCH ×3 (08:00→17:00)
[2017-12-04 08:18] VITALS: BP 132/69; PULSE 70; RESP 20; TEMP 97.8; O2SAT 98
[2017-12-04 08:25] LABS: BICARBONATE 24.9 MEQ/L (21.0-32.0); CALCIUM 8.7 MG/DL (8.5-10.1); CREATININE 0.8 MG/DL (0.60-1.30)
[2017-12-04 08:28] LABS: CHOLESTEROL/ HDL RATIO 2.94 RATIO; HDL CHOLESTEROL 60.4 MG/DL (40.0-60.0)
[2017-12-04] MEDS ORDERED: SODIUM CHLORIDE 0.9% FLUSH 10 ML FLUSH IV FLUSH SCH (09:00)
[2017-12-04] MEDS ORDERED: ASPIRIN 325 MG TAB PO SCH (09:00)
[2017-12-04] MEDS ORDERED: VERAPAMIL HCL 120 MG TAB PO SCH (09:00)
--- NOTE | 2017-12-04 09:15 | HHI.FPPN ---
Subjective Remarks No acute events overnight. Patient resting comfortably in bed. at bedside. Patients states that he left AMA yesterday and came back due to episode of slurred speech that resolved. Had extensive discussion with patient about the important of being on long-term anticoagulation due to A.fib and stroke risk Patient and states they will need time to think about it Patient alert, awake, and oriented x 3 He denies CP, SOB, weakness, fevers, trouble swallowing, N/V, diarrhea, and numbness/tingling He reports that he had chronic pain on the top of his left foot and swelling for the past three months (Kaylynn Marr MD R1) Objective Vitals Vital Signs Date Time Temp Pulse Resp B/P (MAP) Pulse Ox O2 Delivery O2 Flow Rate FiO2 12/04/17 08:18 97.8 70 20 132/69 (90) 98 12/04/17 04:42 97.7 60 16 124/69 (87) 95 12/04/17 01:07 97.4 59 16 123/60 (81) 96 12/03/17 23:04 12/03/17 23:03 63 16 141/75 (97) 97 Room Air 12/03/17 20:35 97.5 62 14 149/76 (100) 96 Room Air 12/03/17 20:00 96 Room Air 12/03/17 18:11 97.1 73 16 137/73 (94) 97 (Kaylynn Marr MD R1) Result Diagram: 12/04/17 0710 12/04/17 0710 Objective Remarks GENERAL: This is a well-nourished, well-developed patient, in no apparent distress. SKIN: No rashes, ecchymoses or lesions. Cool and dry. HEAD: Atraumatic. Normocephalic. No temporal or scalp tenderness. EYES: Pupils equal round and reactive. Extraocular motions intact. No scleral icterus. No injection or drainage. ENT: Throat without erythema, tonsillar hypertrophy or exudate. Uvula midline. Airway patent. NECK: Trachea midline. No JVD or lymphadenopathy. Supple, nontender. CARDIOVASCULAR: Regular rate and rhythm without murmurs, gallops, or rubs. RESPIRATORY: Clear to auscultation. Breath sounds equal bilaterally. No wheezes , rales, or rhonchi. GASTROINTESTINAL: Abdomen soft, non-tender, nondistended. No hepato-splenomegaly , or palpable masses. No guarding. MUSCULOSKELETAL: Extremities without clubbing, cyanosis, or edema. No joint tenderness, effusion, or edema noted. No calf tenderness. NEUROLOGICAL: Alert, oriented x3 Speech- Fluent. No dysarthria or dysphasia. Good focus, attention, and comprehension. Cranial nerves- 2 through 12 intact. Face- No facial droop. No tongue deviation. Sensation intact bilaterally 5/5 strength bilaterally. Cerebellar movements wnl. Able to repeat phrases. Able to name simple objects. Short term memory intact. (Kaylynn Marr MD R1) A/P Assessment and Plan 87-year-old male with history of atrial fibrillation presents with TIA symptoms. Neurology consulted. Discharge Planning Pending Neuro recommendations Pending Echo, MRI (Kaylynn Marr MD R1) Attending Attestation Patient seen and examined. Case reviewed and discussed with the resident team. Agree with plan of care as discussed with me and documented in the resident note. spoke extensively to Mr Munson and his , gave them print outs of the Chaddsvasc2 and also CVA prevention to read. Unfortunately, despite his high risk of CVA, he does not want anticoagulation. he was reassured that he could get his med reversed and would be able to take care of bleeding. he still does not want po meds to prevent clots. he stated that he would come back if he felt that he was having a CVA. I cautioned him about having problems in his sleep and waking up with a CVA that it may be too late to reverse anything. he believes in the chelation he started and feels this has saved his life in the past. (Theresa Estevez MD) Problem List: (1) TIA (transient ischemic attack) ICD Codes: G45.9 - Transient cerebral ischemic attack, unspecified Status: Acute Plan: Symptoms initially began around 1130 this morning. Symptoms quickly resolved. They then returned, but then again quickly resolved. Vascular risk factors include age, A-fib. Not on anticoagulation Physical exam on admission was within normal limits. CT was negative for bleeding. EKG shows A. fib. Troponins negative x2. ABCD2 score of 4: moderate risk for subsequent stroke -MRI brain stat to r/o ischemic stroke pending -MRA brain pending -Carotid [place] minimal plaque at the carotid bulb regions without hemodynamically significant stenosis -ACS rule out -2D ECHO pending -Given aspirin 325mg, continue daily -Neuro checks q4 hrs. Tele. -HOB flat for 12 hrs -Bedrest with fall precautions. -Consult neurology-appreciate recs -PT/OT/ST -Patient passed swallow study, continue with heart healthy diet (2) A-fib ICD Codes: I48.91 - Unspecified atrial fibrillation Plan: Chronic Afib. Not on anticoagulation. 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 Had a extensive discussion with patient about the consequences of not being on anticoagulation in the high risk for strokes. Patient understood and agreed. Patient would like more time to think about it. Will consider placing patient on Eliquis or Pradaxa -Continue daily aspirin -Lovenox while inpatient -Hold verapamil for now for permissive HTN (3) Chronic pain in left foot ICD Codes: M79.672 - Pain in left foot; G89.29 - Other chronic pain Plan: Chronic left foot pain, patient states that pain is most likely located on the top of his foot in a specific area. Will order foot x-ray to rule out fracture or tumor (4) FEN Status: Acute Plan: Diet: heart healthy diet Fluids: None Electrolytes: wnl, monitor and replace PRN DVT ppx: Lovenox (Kaylynn Marr MD R1) Problem Qualifiers (1) TIA (transient ischemic attack): Qualified Codes: G45.9 - Transient cerebral ischemic attack, unspecified (2) A-fib: Qualified Codes: I48.2 - Chronic atrial fibrillation Kaylynn Marr MD R1 Dec 04, 2017 09:15 Theresa Estevez MD Dec 06, 2017 11:09
--- NOTE | 2017-12-04 09:15 | EKG ---
Date Performed: 12/04/2017 Time Performed: 04:38:39 PTAGE: 87 years EKG: ATRIAL FIBRILLATION WITH SLOW VENTRICULAR RESPONSE INCOMPLETE RIGHT BUNDLE BRANCH BLOCK MIN IMAL ST DEPRESSION PROLONGED QT INTERVAL ABNORMAL ECG Since the PREVIOUS TRACING , no significant change noted PREVIOUS TRACIN12/03/2017 14.34 DOCTOR: Dony Almonte Interpretating Date/Time 12/04/2017 09:13:35
--- NOTE | 2017-12-04 09:16 | EKG ---
Date Performed: 12/03/2017 Time Performed: 22:53:12 PTAGE: 87 years EKG: ATRIAL FIBRILLATION INCOMPLETE RIGHT BUNDLE BRANCH BLOCK ABNORMAL RHYTHM ECG Since the PREVIOUS TRACING , no significant change noted PREVIOUS TRACIN12/03/2017 14.34 DOCTOR: Dony Almonte Interpretating Date/Time 12/04/2017 09:13:47
[2017-12-04] MEDS: ASPIRIN 325 MG TAB PO SCH (10:26)
--- NOTE | 2017-12-04 10:36 | RADRPT ---
EXAM DATE: 12/04/2017 10:05 AM EDT AGE/SEX: 87 years / Male INDICATIONS: Cerebrovascular accident. CLINICAL DATA: This is the patient's initial encounter. Patient reports that signs and symptoms have been present for 1 day and indicates a pain score of 0/10. MEDICAL/SURGICAL HISTORY: . Atrial fibrillation. Right inguinal hernia. Tonsillectomy. Cardia c catheterization. COMPARISON: No prior exams available for comparison. VELOCITY PARAMETERS: ICA/CCA Ratio: Right 0.8 , Left 1.4 ICA: Right 79.0 cm/sec, Left 103.2 cm/sec CCA: Right 104.2 cm/sec, Left 72.4 cm/sec ECA: Right 96.3 cm/sec, Left 80.2 cm/sec Vertebral: Right 76.2 cm/sec antegrade, Left 54.8 cm/sec antegrade FINDINGS: Right Carotid: Minimal plaque is seen. The waveforms are within normal limits. Left Carotid: Minimal plaque is seen. The waveforms are within normal limits. Other: None. CONCLUSION: Minimal plaque at the carotid bulb regions without hemodynamically significant stenosis. Electronically signed by: Teddy Whelan MD 12/04/2017 10:35 AM EDT
[2017-12-04 11:51] LABS: TROPONIN I LESS THAN 0.02 NG/ML (0.02-0.05)
--- NOTE | 2017-12-04 12:51 | ECHRPT ---
Indication: cva/tia CONCLUSIONS Normal left ventricular size. Wall thickness is normal. The left ventricular systolic function is mildly reduced with an estimated ejection fraction in the range of 45- 50%. Mitral annular calcification is present. Trace mitral valve regurgitation. There is mild tricuspid valve regurgitation. BP: / HR: Rhythm: MEASUREMENTS (Male / Female) Normal Values Technical Quality:Fair 2D ECHO LV Diastolic Diameter PLAX 4.8 cm 4.2 - 5.9 / 3.9 - 5.3 cm LV Systolic Diameter PLAX 3.8 cm IVS Diastolic Thickness 0.8 cm 0.6 - 1.0 / 0.6 - 0.9 cm LVPW Diastolic Thickness 0.6 cm 0.6 - 1.0 / 0.6 - 0.9 cm LV Relative Wall Thickness 0.3 RV Internal Dim ED PLAX 2.3 cm DOPPLER Mitral E Point Velocity 86.6 cm/s Mitral A Point Velocity 37.3 cm/s Mitral E to A Ratio 2.3 TR Peak Velocity 225.0 cm/s TR Peak Gradient 20.3 mmHg Right Atrial Pressure 10.0 mmHg Pulmonary Artery Systolic Pressu 30.3 mmHg Right Ventricular Systolic Press 30.3 mmHg FINDINGS LEFT VENTRICLE Normal left ventricular size. Wall thickness is normal. The left ventricular systolic function is mildly reduced with an estimated ejection fraction in the range of 45- 50%. RIGHT VENTRICLE Normal right ventricular size and systolic function. LEFT ATRIUM The left atrial size is upper normal. RIGHT ATRIUM The right atrial size is upper normal. ATRIAL SEPTUM Normal atrial septal thickness without atrial level shunting by limited color doppler interrogation. AORTA The aortic root and proximal ascending aorta are normal in size on limited imaging. MITRAL VALVE Mitral annular calcification is present. Trace mitral valve regurgitation. AORTIC VALVE Trileaflet aortic valve. No aortic valve stenosis or regurgitation. TRICUSPID VALVE There is mild tricuspid valve regurgitation. PULMONARY VALVE No pulmonary valve regurgitation or stenosis. VESSELS The inferior vena cava is normal in size. PERICARDIUM No pericardial effusion. Elpidio Castellanos MD (Electronically Signed) Final Date:04 December 2017 12:50
[2017-12-04 12:56] VITALS: BP 136/70; PULSE 68; RESP 20; TEMP 98.2; O2SAT 98
--- NOTE | 2017-12-04 13:01 | RADRPT ---
EXAM DATE: 12/04/2017 12:58 PM EDT AGE/SEX: 87 years / Male INDICATIONS: Left foot pain, no trauma. CLINICAL DATA: This is the patient's subsequent encounter. Patient reports that signs and symptoms h ave been present for 4 - 6 months and indicates a pain score of 7/10. MEDICAL/SURGICAL HISTORY: Cardiovascular disease. Tonsillectomy. COMPARISON: No prior exams available for comparison. FINDINGS: Bony structures are intact and in normal alignment. Osseous density is normal. Soft tissues are unre markable. There are some mild degenerative changes involving the DIP and PIP joints. No radiopaque f oreign bodies seen. CONCLUSION: Unremarkable exam for patient's age. Electronically signed by: Ender Blas MD 12/04/2017 1:00 PM EDT
[2017-12-04] MEDS ORDERED: VERAPAMIL HCL 40 MG TAB PO SCH (16:00)
--- NOTE | 2017-12-04 16:22 | RADRPT ---
EXAM DATE: 12/04/2017 3:57 PM EDT AGE/SEX: 87 years / Male INDICATIONS: Stroke. Slurred speech. CLINICAL DATA: This is the patient's initial encounter. Patient reports that signs and symptoms have been present for 1 day and indicates a pain score of 4/10. MEDICAL/SURGICAL HISTORY: None. . Hernia sx. COMPARISON: No prior exams available for comparison. TECHNIQUE: 3D [id number] MRA was performed. Source images, multiplanar STS MIP, and 3D volum e MIP reconstructions were reviewed. FINDINGS: There is excellent visualization of the major intracranial arteries out to the second-order branch ve ssels. There is no evidence for aneurysm, vessel truncation or stenosis, and no evidence for vascula r malformation. CONCLUSION: 1. Negative MRA [place] ([place]) non contrast. Electronically signed by: Rodrigo Mirza MD 12/04/2017 4:21 PM EDT
--- NOTE | 2017-12-04 16:47 | MB ---
cc: Sharath Gant MD, PhD DATE: 12/04/2017 REASON FOR CONSULTATION: TIA. HISTORY OF PRESENT ILLNESS: This is a very nice 87-year-old man who has a history of atrial fibrillation, who had 2 episodes of sudden onset of slurred speech. He states, yesterday, he was working outside, it was hot, and suddenly developed some slurring of his speech, came to the hospital and the symptoms cleared when he got here. He left AMA, but en route in the car had another episode of slurred speech, left facial droop, came back to the ER. Symptoms cleared up. He had no weakness of the arms or legs. PAST MEDICAL HISTORY: He has a history of atrial fibrillation. He states he has never had strokes or TIA symptoms in the past. History of BPH. MEDICINES AT HOME: Verapamil. ALLERGIES: TYLENOL, BUTORPHANOL, CODEINE, HYDROMORPHONE, KETOROLAC, LIDOCAINE, MORPHINE, NAPROXEN, OXYCODONE, PRAVASTATIN AND TRAMADOL. SOCIAL HISTORY: He denies alcohol use or tobacco use. NEUROLOGICAL EXAMINATION: VITAL SIGNS: Blood pressure is 136/70, pulse 68, respiratory rate 20, temperature 98 degrees. HIGHER CORTICAL FUNCTIONS: Normal. CRANIAL NERVES: Intact. MOTOR EXAM: 5/5 strength in all muscle groups. Reflexes are symmetric. IMAGING STUDIES: CT of the brain, no acute changes present. Carotid ultrasound negative for any significant stenosis. Echocardiogram: Normal. MRI brain pending. LABORATORY DATA: White count 5000; hemoglobin 13; hematocrit 37%; platelet count 173,000. Sodium is 142, potassium 3.6, chloride 108, CO2 is 24.9, the BUN is 13, creatinine 0.8, GFR is 92, glucose 81. Cholesterol 178, LDL 109, HDL 60. IMPRESSION: Transient ischemic attack. 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 He has not been on aspirin a day. Therefore, recommend aspirin 325 mg daily. Also, consider statin given the LDL. He states that he has ALLERGIES TO STATINS, unable to take them. Therefore, recommend diet control of his cholesterol. The patient would like to go home. He is stable at this time and from the neurologic standpoint is stable for discharge home on aspirin 325 mg daily. Sharath Gant MD, PhD [facility] , 04:27 PM , 04:46 PM
--- NOTE | 2017-12-04 16:50 | RADRPT ---
EXAM DATE: 12/04/2017 3:57 PM EDT AGE/SEX: 87 years / Male INDICATIONS: Stroke. Slurred speech. CLINICAL DATA: This is the patient's initial encounter. Patient reports that signs and symptoms have been present for 2 days and indicates a pain score of 3/10. MEDICAL/SURGICAL HISTORY: None. . Hernia. COMPARISON: No prior exams available for comparison. TECHNIQUE: Multiplanar, multisequence examination of the brain was performed without contrast. FINDINGS: Cerebrum: There is linear abnormal signal on the diffusion weighted images seen in the right opercul ar region. There are also small nodular areas of increased signal on the diffusion-weighted images at the right temporal occipital region and to a lesser degree at the right superior lateral parietal lo be which are in the watershed zone. The ventricles are normal for age. There is widening of the anthony ical sulci. There is expansion of the extra-axial spaces over the frontal lobes consistent with atrop hy. 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 No evidence of midline shift, mass le sagar, hemorrhage. The pituitary gland and suprasellar cistern are normal in configuration. White Matter: There is mild increased signal in the periventricular white matter and scattered in th e cerebral and pontine white matter. Posterior Fossa: There is an old lacunar infarct at the right cerebellar hemisphere. Otherwise, the c erebellum and brainstem are intact. The 4th ventricle is midline. The cerebellopontine angle is unr emarkable. The cerebellar tonsils are normal in position. Extracranial: The visualized portions of the orbits and paranasal sinuses are unremarkable. CONCLUSION: 1. There is a acute linear area of infarction in the right opercular region and small focal punctate areas of infarction in the watershed zone areas between the right middle and posterior cerebral gus kenny in the right temporal occipital and right parietal lobes. 2. Scattered areas of demyelination likely from underlying small vessel ischemic change. Electronically signed by: Teddy Whelan MD 12/04/2017 4:48 PM EDT
[2017-12-04 16:58] VITALS: BP 138/62; PULSE 80; RESP 20; TEMP 97.9; O2SAT 96
[2017-12-04] MEDS ORDERED: ASA325 PO (18:07)
--- NOTE | 2017-12-04 18:08 | HHI.DCPOC ---
Discharge Care Plan Diagnosis: (1) TIA (transient ischemic attack) Goals to Promote Your Health * To prevent worsening of your condition and complications * To maintain your health at the optimal level Directions to Meet Your Goals Take your medications as prescribed Follow your dietary instruction Follow activity as directed Keep your appointments as scheduled Take your immunizations and boosters as scheduled If your symptoms worsen call your PCP, if no PCP go to Urgent Care Center or Emergency Room Smoking is Dangerous to Your Health. Avoid second hand smoke Call the 24-hour hour crisis hotline for domestic abuse at Roque Tran MD R2 Dec 04, 2017 18:08
[2017-12-04 22:30] LABS: HEMOGLOBIN A1C 5.4 % (4.3-6.0)
== END 2017-12-04 19:07 | disposition home or self-care (01) ==
LOC: NEPC 18:02 → NEDA 20:47 → NEPFCDU 23:30
PROVIDERS: ADMIT Family Medicine; ATTEND Family Medicine
DX: I63.8 Other cerebral infarction (principal); R29.818 Other symptoms and signs involving the nervous system; R47.81 Slurred speech; I48.2 Chronic atrial fibrillation; M79.672 Pain in left foot; G89.29 Other chronic pain; E87.8 Other disorders of electrolyte and fluid balance, not elsewhere classified; R79.89 Other specified abnormal findings of blood chemistry; R53.1 Weakness; R29.810 Facial weakness; N40.0 Benign prostatic hyperplasia without lower urinary tract symptoms; Z51.81 Encounter for therapeutic drug level monitoring
CPT/HCPCS: 70450; 70544; 70551; 73630; 80048; 80053; 80061; 81001; 82948; 83036; 83605; 84484; 85025; 85610; 85730; 87040; 92610; 93005; 93306; 93880; 94150; 96372; 97166; 99285; G0378; G8987; G8988; G8989; G8996; G8997; J1650